=== PATIENT | female | born 1955 | race African-American/Black ===

== ENCOUNTER → 2016-09-16 | Outpatient (CLI) | payer OTHER ==
[~2016-09-16] MED LIST: ACCUNEB0.63 MG/3 INH; ADULT LOW DOSE81 MG PO; ADVAIR 250-501 EACH INH; ADVAIR 500-501 EACH INH; ADVAIR 500-501 EACH NASAL; ALBUTEROL2.5 MG/31 PO; ANTIVERT25 MG PO; ASPIRIN81 M2 PO; BENADRYL25 MG PO; BUSPAR30 MG PO; BUSPIRONE HCL15 MG PO; BUSPIRONE PO; CARDIZEM CD240 MG PO; CELEBREX 200 M200 M1; CELEXA40 MG PO; COLACE 100 MG100 MG PO; DULCOLAX5 MG PO; DYAZIDE 37.5-21 EACH PO; FLECAINIDE ACET50 M1 PO; FLEXERIL PO; FLONASE 0.05%50 MCG NASAL; HYDROCODONE-AP1 EAC6; IRON159 MG PO; LAMICTAL XR200 MG PO; LAMOTRIGINE200 MG PO; LOPRESSOR25 PO; MAXAIR AUTOHALE14 G1 INH; MAXAIR AUTOHALER INH; MOBIC15 MG PO; NORCO 10-325 T1 EACH PO; PRILOSEC 20 MG20 MG PO; PROAIR HFA8.5 GM PO; SINGULAIR 10 MG10 MG PO; SPIRIVA INH; STOOL SOFTENER50 MG PO; TAMBOCOR 100 M100 M1 PO; TRAMADOL 50 MG50 MG PO; VOLTAREN100 GM TRANSDERM; XARELTO10 M1; XARELTO10 M1 PO; XOPENEX HF1 UDINHALE INH
== END ==
LOC: CAT 15:58
DX: J45.50 Severe persistent asthma, uncomplicated (principal)

== ENCOUNTER 2017-04-17 02:07 | Emergency (ER) | payer OTHER ==
[~2017-04-17] VITALS: Ht 165.1 cm; Wt 99.8 kg
[2017-04-17] MEDS ORDERED: TRENTELIX PO (02:20)
[2017-04-17] MEDS ORDERED: MEDROL4 MG PO (02:22)
[2017-04-17] MEDS ORDERED: ATORVASTATIN CA40 MG PO (02:23)
[2017-04-17] MEDS ORDERED: NUCALA100 MG SUBQ (02:24)
[2017-04-17 02:27] LABS: URINE BILIRUBIN NEGATIVE (Negative); URINE BLOOD 3+ (Negative); URINE CLARITY CLEAR; URINE COLOR YELLOW; URINE GLUCOSE-RANDOM* NEGATIVE (Negative); URINE KETONES NEGATIVE (Negative); URINE NITRITE-REFLEX NEGATIVE (Negative); URINE PROTEIN (DIPSTICK) NEGATIVE (Negative); URINE SPECIFIC GRAVITY <= 1.005 (1.005-1.035); URINE UROBILINOGEN 0.2 E.U./dl (0.2-1.0)
[2017-04-17 02:47] LABS: URINE LEUKOCYTES-REFLEX 3+ (Negative)
[2017-04-17 03:00] LABS: CASTS None Seen /LPF (None Seen); MUCUS None Seen strn/LPF (None Seen); SQUAMOUS None Seen /LPF (0-3)
[2017-04-17 03:01] LABS: CRYSTALS None Seen /LPF (None Seen); URINE WBC-REFLEX >25 Many /HPF (0-5)
[2017-04-17] MEDS ORDERED: BACTRIM DS TAB1 EACH PO (03:06)
[2017-04-17 03:47] VITALS: BP 120/64
== END 2017-04-17 03:50 | disposition home or self-care (01) ==
LOC: ER 02:07
PROVIDERS: Emergency Medicine
DX: N39.0 Urinary tract infection, site not specified (principal); J45.909 Unspecified asthma, uncomplicated; I10 Essential (primary) hypertension; I48.91 Unspecified atrial fibrillation; K21.9 Gastro-esophageal reflux disease without esophagitis; F32.9 Major depressive disorder, single episode, unspecified; G47.30 Sleep apnea, unspecified; Z90.711 Acquired absence of uterus with remaining cervical stump; Z86.2 Personal history of diseases of the blood and blood-forming organs and certain disorders involving the immune mechanism; Z96.653 Presence of artificial knee joint, bilateral; Z88.8 Allergy status to other drugs, medicaments and biological substances; Z88.1 Allergy status to other antibiotic agents; Z87.891 Personal history of nicotine dependence

== ENCOUNTER → 2017-06-01 | Outpatient (CLI) | payer OTHER ==
[~2017-06-01] MED LIST changes: +ATORVASTATIN CA40 MG PO; +BACTRIM DS TAB1 EACH PO; +MEDROL4 MG PO; +NUCALA100 MG SUBQ; +TRENTELIX PO
== END ==
LOC: RAD 13:07
DX: J45.50 Severe persistent asthma, uncomplicated (principal); J98.11 Atelectasis

== ENCOUNTER 2018-04-21 12:54 | Emergency (ER) | payer OTHER ==
[~2018-04-21] VITALS: Ht 165.1 cm; Wt 99.8 kg
[2018-04-21 13:53] LABS: HEMATOCRIT 41.3 % (37.0-47.0); HEMOGLOBIN 13.2 gm/dL (12.0-15.0); MCH 27.7 pg (26.0-34.0); MCHC 32.1 g/dL (28.0-37.0); MCV 86.3 fL (80.0-100.0); RBC 4.78 mil/uL (4.20-5.00); RDW 14.9 % (10.5-14.5); WBC 7.1 thou/uL (4.0-11.0)
[2018-04-21 14:04] LABS: CALCIUM 10.1 mg/dL (8.5-10.1); CREATININE 0.9 mg/dL (0.6-1.0); POTASSIUM 3.5 mmol/L (3.5-5.1)
[2018-04-21 14:09] LABS: ALBUMIN 3.5 g/dL (3.4-5.0); TOTAL BILIRUBIN 0.2 mg/dL (<0.1-1.0); TOTAL PROTEIN 7.1 g/dL (6.4-8.2)
[2018-04-21] MEDS ORDERED: NORCO 5-325 TA1 EACH PO (15:17)
[2018-04-21 16:01] VITALS: BP 112/52
--- NOTE | 2018-04-21 16:20 | EKG ---
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: : 1955 Requested By: Glen Smith Order Number: [id number] MD: Jorge Perrin Measurements Intervals [place] Rate: 61 P: 31 UT: 189 QRS: -34 QRSD: 96 T: 24 QT: 435 QTc: 439 Interpretive Statements Sinus rhythm Left axis deviation Borderline T wave abnormalities Compared to ECG 11/16/2014 09:46:40 Left-axis deviation now present Junctional rhythm no longer present Possible ischemia no longer present T-wave abnormality still present Electronically Signed On 04-21-2018 16:19:46 DIE HARDENER by Jorge Perrin [email or web address] <ELECTRONICALLY SIGNED> By: Jorge Perrin MD 04/21/18 1619 [id number] [id number] Jorge Perrin MD /EPI
== END 2018-04-21 16:02 | disposition home or self-care (01) ==
LOC: ER 12:54
PROVIDERS: Emergency Medicine
DX: R07.89 Other chest pain (principal); J45.909 Unspecified asthma, uncomplicated; I10 Essential (primary) hypertension; I48.91 Unspecified atrial fibrillation; K21.9 Gastro-esophageal reflux disease without esophagitis; F32.9 Major depressive disorder, single episode, unspecified; G47.30 Sleep apnea, unspecified; Z86.2 Personal history of diseases of the blood and blood-forming organs and certain disorders involving the immune mechanism; Z87.891 Personal history of nicotine dependence; Z88.1 Allergy status to other antibiotic agents; Z88.8 Allergy status to other drugs, medicaments and biological substances; Z98.890 Other specified postprocedural states; Z90.711 Acquired absence of uterus with remaining cervical stump

== ENCOUNTER → 2018-12-05 | Outpatient (CLI) | payer OTHER ==
[~2018-12-05] VITALS: Ht 162.6 cm; Wt 100.0 kg
[~2018-12-05] MED LIST changes: +AZELASTINE137 MCG/0. NASAL; +BUSPIRONE HCL10 MG PO; -BUSPIRONE HCL15 MG PO; +NORCO 5-325 TA1 EACH PO; +OMEPRAZOLE40 MG PO
--- NOTE | ~2018-12-05 | HPC ---
[facility] [address] [place] [address] PAIN MANAGEMENT CONSULTATION Name: SHARON GONZALES GIOVANNI Room #: REG OLIMPIA MEdisonAmy.#: [id number] Admission: 12/05/18 Attend Phys: Vitaliy Montano MD Discharge: Date of : 53 Report #: [id number] THIS REPORT FOR: //name// CC: Guille Montano DATE OF SERVICE: 12/05/2018 CHIEF COMPLAINT: Low back pain radiating into the left leg. HISTORY OF PRESENT ILLNESS: The patient is here today at the request of Dr. Howe for treatment of lumbar radiculopathy. She has had previous episodes of back pain treated with epidural injections by Dr. Marcelo Mancera. She has been unable to get into his office. Dr. Howe suggested our office. She describes pain that hurts in the middle part of her low back, buttocks and down into her left leg. On occasion, it goes into the right. It is worsened by standing and walking. She has some relief in the sitting position, and also, she feels pain relief when she is in the pool; she has been in frequently recently. Beginning in the middle of October, she began experiencing pain around the waist. It then radiated into the hips and then finally into the left leg. It goes all the way down to the calf at this time. Pain today is 5/10, described as aching, crushing and burning. ALLERGIES: DEMEROL AND MELOXICAM. MEDICATIONS: Spiriva, Advair, Xopenex nebulizer, Astelin, montelukast, flecainide, metoprolol, diltiazem, triamterene/hydrochlorothiazide, atorvastatin, omeprazole, buspirone, Trintellix, lamotrigine, and she has been taking some Tylenol and 100-mg gabapentin at bedtime for pain relief. REVIEW OF SYSTEMS: GENERAL: Positive for weakness in the leg. She has not fallen. She has chronic sinus problems and describes shortness of breath. CARDIOVASCULAR: She has a history of chest pain, palpitations. RESPIRATORY: She describes frequent coughing spells, shortness of breath and asthma, wheezing. GENITOURINARY: She suffers from nocturia. PSYCHIATRIC: She reports nervousness, depression and insomnia. HEMATOLOGIC: Positive for history of anemia. SOCIAL HISTORY: She is off work for the last 5-6 years. 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 She denies use of tobacco and alcohol. [facility] [address] [place] [address] PAIN MANAGEMENT CONSULTATION Name: SHARON GONZALES GIOVANNI Room #: REG [facility]#: [id number] Admission: 12/05/18 Attend Phys: Vitaliy Montano MD Discharge: Date of : 53 Report #: [id number] PHYSICAL EXAMINATION: GENERAL: This is a very eleonora 63-year-old. She is alert and oriented. She moves from sitting to standing position, and her gait is antalgic. She has difficulty getting up and down out of a chair. She is 5 feet 4 inches, 220 pounds. BMI is 37.8. VITAL SIGNS: Blood pressure 128/87, heart rate 73, respirations 16. HEENT: Normal. NECK: Supple. CHEST: Clear. There is no wheezing. CARDIAC: Regular rhythm without murmur. ABDOMEN: Soft and nontender. No organomegaly. MUSCULOSKELETAL: Spine is tender. She has restricted motion in extension, which reproduces pain in her back and into her right leg. Straight leg raising is positive on the right consistent with radiculopathy. There is no numbness. There is some mild focal weakness noted in hip flexion and leg extension. IMPRESSION: L5 radiculopathy. RECOMMENDATION: She will benefit from an epidural injection. I would recommend we proceed at L4-L5. I have explained the procedure to her, risks and benefits. She understands the procedure. Dr. Mancera has performed the procedure for her in the past. We will schedule her back as soon as we have received preauthorization. By: [id number] Vitaliy Montano MD /nt
[2018-12-05 12:57] VITALS: BP 128/87
--- NOTE | 2018-12-05 13:31 | NUR ---
Pain Clinic Assessment: 1. History of Osteoarthritis: Left Lower Extremity Right Lower Extremity History of Rheumatoid Arthritis: Not Applicable 2. Height: 5 ft. 4 in. 162.6 cm. Weight: 220.4 lb. oz. 99.973 kg. Patient's BMI: 37.8 3. Vital Signs: BP: 128/87 Pulse: 73 Resp: 16 Temp: 02 Sat: 94 ECG Mon: 4. Pain Intensity: 5 5. Fall Risk: Dizziness: N Needs help standing or walking: N Fallen in the last 3 months: N Fall risk comments: 6. Patient on Blood Thinner: None 7. History of Hypertension: Y 8. Opioid Therapy greater than 6 weeks: N Opiate Contract Signed: 9. Risk Assessment Tool Provided: 10. Functional Assessment Tool: 11. Recreational Drug Use: Never Drug Type: Tobacco Use: Never Smoker Tobacco Type: Amount or Packs/day: How Many Years: Alcohol Use: No Frequency: Quant:
== END ==
LOC: PAIN 06:58
DX: M54.16 Radiculopathy, lumbar region (principal); M79.606 Pain in leg, unspecified

== ENCOUNTER → 2018-12-22 | Outpatient (CLI) | payer OTHER ==
[~2018-12-22] VITALS: Ht 162.6 cm; Wt 99.4 kg
--- NOTE | ~2018-12-22 | HPC ---
[facility] [place] [address] PAIN MANAGEMENT CONSULTATION Name: SHARON GONZALES GIOVANNI Room #: REG NBADemetra Adam#: [id number] Admission: 12/22/18 Attend Phys: Vitaliy Montano MD Discharge: Date of : 53 Report #: [id number] THIS REPORT FOR: //name// CC: Guille Montano DATE OF SERVICE: 12/22/2018 Followup visit for lumbar radiculopathy radiating into the left lower extremity, primarily, but bilateral. The patient returns to pain clinic for the epidural injection, we received preauthorization to go forward. Her pain follows primarily L5 distribution. She has an MRI, which I reviewed today. It does show degenerative changes throughout the lumbar spine. She does not have significant spinal stenosis, which is favorable. There is some neural foraminal narrowing at several levels. I reviewed her written report from 12/05/2018 just 2 weeks ago. There have been no significant changes. I plan to go forward today with the epidural. The procedure was explained including risks and benefits. Informed consent was signed. PROCEDURE: Lumbar epidural injection under fluoroscopic guidance. DESCRIPTION OF PROCEDURE: She was taken to fluoroscopic suite, placed prone, skin prepped with ChloraPrep. Skin anesthetized over the L5-S1 interspace. A 20-gauge Tuohy epidural needle advanced in the epidural space in first attempt using loss of resistance. There was no blood or CSF aspirated. A 1 mL of Omnipaque injected. Good spread of dye observed into the epidural space followed by 3 mL of 0.5% lidocaine mixed with 80 mg triamcinolone. She tolerated the procedure well and was observed for 45 minutes and discharged without complication. Followup visit planned as needed. By: [id number] Vitaliy Montano MD /nt
[2018-12-22 15:12] VITALS: BP 112/76
--- NOTE | 2018-12-22 15:30 | NUR ---
Pain Clinic Assessment: 1. History of Osteoarthritis: Left Lower Extremity Right Lower Extremity History of Rheumatoid Arthritis: Not Applicable 2. Height: 5 ft. 4 in. 162.6 cm. Weight: 219.2 lb. oz. 99.429 kg. Patient's BMI: 37.6 3. Vital Signs: BP: 112/76 Pulse: 64 Resp: 66 Temp: 02 Sat: 97 ECG Mon: 4. Pain Intensity: 5-6 5. Fall Risk: Dizziness: Y Needs help standing or walking: N Fallen in the last 3 months: N Fall risk comments: 6. Patient on Blood Thinner: None 7. History of Hypertension: Y 8. Opioid Therapy greater than 6 weeks: N Opiate Contract Signed: 9. Risk Assessment Tool Provided: 10. Functional Assessment Tool: 11. Recreational Drug Use: Never Drug Type: Tobacco Use: Never Smoker Tobacco Type: Amount or Packs/day: How Many Years: Alcohol Use: No Frequency: Quant:
== END | disposition home or self-care (01) ==
LOC: PAIN 07:01
DX: M51.16 Intervertebral disc disorders with radiculopathy, lumbar region (principal); M48.061 Spinal stenosis, lumbar region without neurogenic claudication; G89.29 Other chronic pain; Z88.8 Allergy status to other drugs, medicaments and biological substances; Z79.899 Other long term (current) drug therapy; Z98.890 Other specified postprocedural states

== ENCOUNTER → 2019-08-23 | Outpatient (CLI) | payer OTHER | LOC: SJCVCIMAG 08-14 08:25 | DX: I48.0 Paroxysmal atrial fibrillation (principal); I71.2 Thoracic aortic aneurysm, without rupture; I10 Essential (primary) hypertension; E78.5 Hyperlipidemia, unspecified; K55.20 Angiodysplasia of colon without hemorrhage ==

== ENCOUNTER 2019-09-23 20:34 | Emergency (ER) | payer OTHER ==
[~2019-09-23] VITALS: Ht 162.6 cm; Wt 102.1 kg
[2019-09-23 21:25] LABS: BASOPHILS 0.3 % (0.0-2.0); EOSINOPHILS 3.4 % (0.0-3.0); HEMATOCRIT 34.2 % (37.0-47.0); HEMOGLOBIN 10.8 gm/dL (12.0-15.0); MCH 25.8 pg (26.0-34.0); MCHC 31.7 g/dL (28.0-37.0); MCV 81.4 fL (80.0-100.0); MONOCYTES 7.2 % (1.0-8.0); PLATELET COUNT 393 thou/uL (150-400); POLYS 56.1 % (36.0-66.0); RDW 22.2 % (10.5-14.5); WBC 8.9 thou/uL (4.0-11.0)
[2019-09-23 21:40] LABS: ALBUMIN 3.6 g/dL (3.4-5.0); CALCIUM 9.8 mg/dL (8.5-10.1); TOTAL BILIRUBIN 0.3 mg/dL (0.2-1.0); TOTAL PROTEIN 7.3 g/dL (6.4-8.2)
[2019-09-23 21:42] LABS: APTT 28.1 Seconds (24.5-32.8)
[2019-09-23 21:44] LABS: POTASSIUM 2.9 mmol/L (3.5-5.1)
[2019-09-23] MEDS ORDERED: NEURONTIN100 MG PO (22:51)
[2019-09-24 00:13] VITALS: BP 113/86
--- NOTE | 2019-09-25 08:53 | EKG ---
[facility] [place] [address] ELECTROCARDIOGRAM REPORT Name: SHARON GONZALES Room #: DEP [facility].Edison#: [id number] Admission: 09/23/19 Attend Phys: Discharge: 09/24/19 Date of : 53 Report #: [id number] THIS REPORT FOR: cc: Guille Howe MD, Kirk D. MD Lundgren, Craig H. 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: Urologist Md: JOSE : 1955 Requested By: Nasir Dean Order Number: [id number] MD: Andrez Howell Measurements Intervals [place] Rate: 70 P: 31 SC: 187 QRS: -41 QRSD: 97 T: 41 QT: 378 QTc: 408 Interpretive Statements Sinus rhythm Left axis deviation Abnormal R-wave progression, late transition Borderline T abnormalities, anterior leads Compared to ECG 04/21/2018 13:51:26 No significant changes Electronically Signed On 09-25-2019 8:50:55 CDT by Andrez Howell [email or web address] <ELECTRONICALLY SIGNED> By: Andrez Howell MD, [facility] 09/25/19 0850 [id number] [id number] Andrez Howell MD, [facility] /EPI
== END 2019-09-24 00:20 | disposition home or self-care (01) ==
LOC: ER 20:34
PROVIDERS: Emergency Medicine
DX: S40.021A Contusion of right upper arm, initial encounter (principal); M25.511 Pain in right shoulder; Z87.891 Personal history of nicotine dependence; Z88.1 Allergy status to other antibiotic agents; Z88.5 Allergy status to narcotic agent; Z88.8 Allergy status to other drugs, medicaments and biological substances; Z79.899 Other long term (current) drug therapy; Z96.653 Presence of artificial knee joint, bilateral; Z98.890 Other specified postprocedural states; Z79.82 Long term (current) use of aspirin; X58.XXXA Exposure to other specified factors, initial encounter; Y93.89 Activity, other specified; Y92.89 Other specified places as the place of occurrence of the external cause; Y99.9 Unspecified external cause status

== ENCOUNTER → 2020-02-23 | Outpatient (CLI) | payer OTHER, MEDICARE ==
[~2020-02-23] MED LIST changes: +NEURONTIN100 MG PO
== END ==
LOC: SJCVC 15:10
PROVIDERS: ATTEND Internal Medicine
DX: I48.0 Paroxysmal atrial fibrillation (principal); I71.2 Thoracic aortic aneurysm, without rupture; I10 Essential (primary) hypertension; E78.5 Hyperlipidemia, unspecified; K55.20 Angiodysplasia of colon without hemorrhage

== ENCOUNTER → 2020-03-21 | Outpatient (CLI) | payer OTHER, MEDICARE | LOC: RAD 12:08 | PROVIDERS: ATTEND Internal Medicine | DX: J98.11 Atelectasis (principal) ==

== ENCOUNTER → 2020-08-23 | Outpatient (CLI) | payer OTHER | LOC: SJCVC 14:18 | PROVIDERS: ATTEND Internal Medicine | DX: I71.2 Thoracic aortic aneurysm, without rupture (principal); I48.0 Paroxysmal atrial fibrillation; I10 Essential (primary) hypertension; E78.5 Hyperlipidemia, unspecified; K55.20 Angiodysplasia of colon without hemorrhage; J45.909 Unspecified asthma, uncomplicated; G47.33 Obstructive sleep apnea (adult) (pediatric); F32.9 Major depressive disorder, single episode, unspecified; Z87.440 Personal history of urinary (tract) infections; Z87.891 Personal history of nicotine dependence; Z79.82 Long term (current) use of aspirin; Z79.899 Other long term (current) drug therapy; Z88.1 Allergy status to other antibiotic agents; Z88.2 Allergy status to sulfonamides; Z88.5 Allergy status to narcotic agent; Z88.8 Allergy status to other drugs, medicaments and biological substances ==

== ENCOUNTER → 2020-11-14 | Outpatient (CLI) | payer OTHER ==
[~2020-11-14] VITALS: Ht 160 cm; Wt 87.8 kg
[~2020-11-14] MED LIST changes: +DUPIXENT300 MG/2 M INJECTION
[2020-11-14 13:19] VITALS: BP 113/79
--- NOTE | 2020-11-14 13:29 | NUR ---
Pain Clinic Assessment: 1. History of Osteoarthritis: SPINE "ALL OVER" History of Rheumatoid Arthritis: Not Applicable 2. Height: 5 ft. 3 in. 160.0 cm. Weight: 193.6 lb. oz. 87.816 kg. Patient's BMI: 34.3 3. Vital Signs: BP: 113/79 Pulse: 84 Resp: 16 Temp: 02 Sat: 94 ECG Mon: 4. Pain Intensity: 6 TO 10 5. Fall Risk: Dizziness: N Needs help standing or walking: N Fallen in the last 3 months: N Fall risk comments: 6. Patient on Blood Thinner: None 7. History of Hypertension: Y 8. Opioid Therapy greater than 6 weeks: N Opiate Contract Signed: 9. Risk Assessment Tool Provided: 10. Functional Assessment Tool: 11. Recreational Drug Use: Never Drug Type: Tobacco Use: Former Smoker Tobacco Type: Amount or Packs/day: How Many Years: Alcohol Use: No Frequency: Quant:
== END ==
LOC: PAIN 07:58
PROVIDERS: ATTEND Anesthesiology Pain Medicine
DX: M54.16 Radiculopathy, lumbar region (principal); M25.571 Pain in right ankle and joints of right foot; I48.91 Unspecified atrial fibrillation; I10 Essential (primary) hypertension; J45.909 Unspecified asthma, uncomplicated; Z68.34 Body mass index [BMI] 34.0-34.9, adult; Z96.653 Presence of artificial knee joint, bilateral; Z88.8 Allergy status to other drugs, medicaments and biological substances; Z87.891 Personal history of nicotine dependence

== ENCOUNTER → 2020-11-20 | Outpatient (CLI) | payer OTHER | LOC: MRI 09:31 | PROVIDERS: ATTEND Anesthesiology Pain Medicine | DX: M51.16 Intervertebral disc disorders with radiculopathy, lumbar region (principal); M47.27 Other spondylosis with radiculopathy, lumbosacral region; M48.061 Spinal stenosis, lumbar region without neurogenic claudication; M51.17 Intervertebral disc disorders with radiculopathy, lumbosacral region; M51.15 Intervertebral disc disorders with radiculopathy, thoracolumbar region; N28.1 Cyst of kidney, acquired ==

== ENCOUNTER → 2020-11-21 | Outpatient (CLI) | payer OTHER ==
[~2020-11-21] VITALS: Ht 160 cm; Wt 101.9 kg
[2020-11-21 09:21] VITALS: BP 127/80
--- NOTE | 2020-11-21 09:41 | NUR ---
Pain Clinic Assessment: 1. History of Osteoarthritis: SPINE "ALL OVER" History of Rheumatoid Arthritis: Not Applicable 2. Height: 5 ft. 3 in. 160.0 cm. Weight: 224.6 lb. oz. 101.878 kg. Patient's BMI: 39.8 3. Vital Signs: BP: 127/80 Pulse: 73 Resp: 16 Temp: 02 Sat: 100 ECG Mon: 4. Pain Intensity: 6 5. Fall Risk: Dizziness: N Needs help standing or walking: N Fallen in the last 3 months: N Fall risk comments: 6. Patient on Blood Thinner: None 7. History of Hypertension: Y 8. Opioid Therapy greater than 6 weeks: N Opiate Contract Signed: 9. Risk Assessment Tool Provided: 10. Functional Assessment Tool: 11. Recreational Drug Use: Never Drug Type: Tobacco Use: Former Smoker Tobacco Type: Amount or Packs/day: How Many Years: Alcohol Use: No Frequency: Quant:
== END | disposition home or self-care (01) ==
LOC: PAIN 07:08
PROVIDERS: ATTEND Anesthesiology Pain Medicine
DX: M54.16 Radiculopathy, lumbar region (principal); M43.16 Spondylolisthesis, lumbar region; G89.29 Other chronic pain; I10 Essential (primary) hypertension; Z98.890 Other specified postprocedural states; Z79.899 Other long term (current) drug therapy; Z87.891 Personal history of nicotine dependence; Z88.8 Allergy status to other drugs, medicaments and biological substances

== ENCOUNTER → 2021-05-13 | Outpatient (CLI) | payer OTHER | LOC: SJCVCIMAG 02-24 14:16 | PROVIDERS: ATTEND Internal Medicine | DX: I08.8 Other rheumatic multiple valve diseases (principal); I48.0 Paroxysmal atrial fibrillation; I71.2 Thoracic aortic aneurysm, without rupture; I10 Essential (primary) hypertension; E78.5 Hyperlipidemia, unspecified; K55.20 Angiodysplasia of colon without hemorrhage; J45.909 Unspecified asthma, uncomplicated; F32.9 Major depressive disorder, single episode, unspecified; G47.33 Obstructive sleep apnea (adult) (pediatric); J32.9 Chronic sinusitis, unspecified; Z87.891 Personal history of nicotine dependence; Z79.82 Long term (current) use of aspirin; Z79.899 Other long term (current) drug therapy; Z88.1 Allergy status to other antibiotic agents; Z88.2 Allergy status to sulfonamides; Z88.8 Allergy status to other drugs, medicaments and biological substances ==